=== PATIENT | female | born 2000 | race Two or more races ===

== ENCOUNTER 2021-07-23 15:15 | Outpatient (CLI) | payer BC, OTHER ==
[~2021-07-23] VITALS: Ht 154.9 cm; Wt 63.6 kg
[2021-07-23 15:48] VITALS: BP 115/65
[2021-07-23] MEDS ORDERED: PREN1TAB10 PO (16:57)
== END 2021-07-23 17:05 | disposition home or self-care (01) ==
LOC: LDOP 15:15
PROVIDERS: ATTEND Obstetrics & Gynecology
DX: O26.893 Other specified pregnancy related conditions, third trimester (principal); R10.9 Unspecified abdominal pain; Z3A.38 38 weeks gestation of pregnancy
CPT/HCPCS: 59025

== ENCOUNTER 2021-07-24 01:50 | Outpatient (CLI) | payer BC, OTHER ==
[~2021-07-24 01:50] MED LIST: PREN1TAB10 PO
== END 2021-07-24 04:41 | disposition home or self-care (01) ==
LOC: LDOP 01:50
PROVIDERS: ATTEND Obstetrics & Gynecology
DX: O62.9 Abnormality of forces of labor, unspecified (principal); Z3A.38 38 weeks gestation of pregnancy
CPT/HCPCS: 59025

== ENCOUNTER 2021-07-24 21:57 | Inpatient (IN) | payer BC ==
[~2021-07-24] VITALS: Ht 154.9 cm; Wt 59.1 kg
[2021-07-24] MEDS ORDERED: NEWBORN KIT ONE (22:05)
[2021-07-24] MEDS ORDERED: OXYTOCIN 30U/ 0.9% NaCL 500ML 500 ML ONE (22:05)
[2021-07-24] MEDS ORDERED: FENTANYL PF 100 MCG/2ML IV PRN (22:30)
[2021-07-24] MEDS ORDERED: LACTATED RINGERS 1,000 ML IV SCH (22:30)
[2021-07-24] MEDS ORDERED: ONDANSETRON 2MG/ML, 2ML IVPush PRN (22:30)
[2021-07-24] MEDS ORDERED: PLEASE ENTER ALLERGIES MC SCH (22:30)
[2021-07-24] MEDS ORDERED: METOCLOPRAMIDE 5 MG/ML, 2ML IVPush PRN (22:30)
[2021-07-24] MEDS ORDERED: FENTANYL PF 100 MCG/2ML IVPush PRN (22:30)
[2021-07-24] MEDS ORDERED: OXYTOCIN 30U/ 0.9% NaCL 500ML 500 ML IV ONE (22:30)
[2021-07-24] MEDS ORDERED: TERBUTALINE 1 MG/ML, 1ML IVPush PRN (22:30)
[2021-07-24] MEDS ORDERED: SODIUM CITRATE/CITRIC ACID 30 ML UDC PO PRN (22:30)
[2021-07-24] MEDS ORDERED: TERBUTALINE 1 MG/ML, 1ML SQ PRN (22:30)
[2021-07-24] MEDS ORDERED: D5%-LACTATED RINGERS 1,000 ML IV SCH (22:30)
[2021-07-24 22:45] LABS: BASOPHILS % (AUTO) 0 % (0-1); EOSINOPHILS % (AUTO) 0 % (1-7); LYMPHOCYTES % (AUTO) 18 % (22-44); MEAN CORPUSCULAR HEMOGLOBIN 30.6 pg (27.0-34.8); MEAN CORPUSCULAR HGB CONC 34.2 g/dL (32.4-35.8); MEAN PLATELET VOLUME 8.8 fL (7.4-10.4); MONOCYTES % (AUTO) 6 % (2-9); NEUTROPHILS % (AUTO) 76 % (42-75); PLATELET COUNT 192 x10^3/uL (130-400); RED CELL DISTRIBUTION WIDTH 13.2 % (9.6-15.2)
[2021-07-25] MEDS ORDERED: OXYcodone/APAP 5/325MG TABLET PO PRN
[2021-07-25] MEDS ORDERED: ACETAMINOPHEN 325 MG TABLET PO PRN
[2021-07-25] MEDS ORDERED: OXYcodone IR 5MG TABLET PO PRN
[2021-07-25] MEDS ORDERED: MISOPROSTOL 200 MCG TABLET PR PRN
[2021-07-25] MEDS ORDERED: SIMETHICONE 80 MG CHEW TAB PO PRN
[2021-07-25] MEDS ORDERED: IBUPROFEN 600 MG TABLET PO PRN
[2021-07-25] MEDS ORDERED: ONDANSETRON 2MG/ML, 2ML IV PRN
[2021-07-25 00:02] VITALS: BP 110/57
[2021-07-25 02:02] VITALS: BP 106/55
[2021-07-25 08:05] VITALS: BP 93/51
[2021-07-25 08:18] LABS: BASOPHILS % (AUTO) 0 % (0-1); EOSINOPHILS % (AUTO) 0 % (1-7); LYMPHOCYTES % (AUTO) 16 % (22-44); MEAN CORPUSCULAR HGB CONC 34.5 g/dL (32.4-35.8); MEAN PLATELET VOLUME 9.2 fL (7.4-10.4); MONOCYTES % (AUTO) 7 % (2-9); NEUTROPHILS % (AUTO) 78 % (42-75); PLATELET COUNT 181 x10^3/uL (130-400); RED BLOOD COUNT 3.13 x10^6/uL (3.82-5.3); RED CELL DISTRIBUTION WIDTH 13.1 % (9.6-15.2)
[2021-07-25] MEDS: PRENATAL VIT/IRON/FA 1 EACH TABLET PO SCH (09:10)
[2021-07-25] MEDS: DOCUSATE 100 MG CAPSULE PO PRN ×2 (09:14→21:35)
[2021-07-25] MEDS: OXYTOCIN 30U/ 0.9% NaCL 500ML 500 ML IV SCH ×3 (10:00→20:00)
[2021-07-25 16:00] VITALS: BP 89/55
[2021-07-25 19:50] VITALS: BP 93/50
[2021-07-25] MEDS ORDERED: DIPH,PERTUSS(ACELL),TET VAC/PF NC IM-VACC ONE (20:30)
[2021-07-26] MEDS: OXYTOCIN 30U/ 0.9% NaCL 500ML 500 ML IV SCH (06:00)
[2021-07-26 07:30] VITALS: BP 94/67
[2021-07-26] MEDS: PRENATAL VIT/IRON/FA 1 EACH TABLET PO SCH (09:08)
[2021-07-26] MEDS: DOCUSATE 100 MG CAPSULE PO PRN (09:08)
[2021-07-26] MEDS ORDERED: IBUP-1222 PO (09:19)
== END 2021-07-26 13:55 | disposition home or self-care (01) | DRG 807 ==
LOC: LDOP 21:57 → LDIP 22:08 → 2NE 07-25 01:37 → 2NW 07-25 15:37
PROVIDERS: ADMIT Obstetrics & Gynecology; ATTEND Obstetrics & Gynecology
PROC: 0UQMXZZ Repair Vulva, External Approach (ICD-10-PCS; principal; 2021-07-25)
PROC: 10E0XZZ Delivery of Products of Conception, External Approach (ICD-10-PCS; 2021-07-25)
DX: O71.82 Other specified trauma to perineum and vulva (principal); Z37.0 Single live birth; Z3A.38 38 weeks gestation of pregnancy; Z20.822 Contact with and (suspected) exposure to COVID-19
CPT/HCPCS: 36415; 85025; 86592; 86850; 86900; 87635; 90715; G0378; J3010; J7120